=== PATIENT | male | born 2000 | race African-American/Black ===

== ENCOUNTER 2022-05-17 12:35 | Emergency (ER) | payer MEDICAID, OTHER ==
[~2022-05-17] VITALS: Ht 165.1 cm; Wt 60.8 kg
[2022-05-17 12:40] VITALS: BP 136/72
--- NOTE | 2022-05-17 12:40 | NUR ---
[facility]BS C/O PENILE DISCHARGE SINCE THIS AM, AWAITING MD ORDERS.
[2022-05-17] MEDS ORDERED: CEFTRIAXONE 1 G VIAL IM ONE (13:30)
[2022-05-17] MEDS ORDERED: PENICILLIN G BENZATHINE 2.4 MMU/4 ML ML IM ONE ×2 (13:30→13:57)
[2022-05-17] MEDS ORDERED: CEFTRIAXONE 500 MG VIAL ONE (13:57)
[2022-05-17] MEDS ORDERED: LIDOCAINE HCL/MPF 1% 30 ML VIAL IJ ONE (13:58)
[2022-05-17] MEDS ORDERED: DOXY100C2 PO (14:48)
--- NOTE | 2022-05-17 15:09 | NUR ---
Sonia rodriguez in [facility] - 05/17/22 at 1509 by MARYLOU DC
--- NOTE | 2022-05-17 15:09 | NUR ---
Patient discharged to home in stable condition. Written and verbal after care instructions given. Patient verbalizes understanding of instruction.
== END 2022-05-17 15:10 | disposition home or self-care (01) ==
LOC: ER 14:42
DX: A64 Unspecified sexually transmitted disease (principal)
CPT/HCPCS: 99284; 96372 ×2; 87491 ×2; 87591; J0558; J0696; J3490

== ENCOUNTER 2022-11-24 15:01 | Emergency (ER) | payer MEDICAID ==
[~2022-11-24] VITALS: Ht 167.6 cm; Wt 59.9 kg
[2022-11-24 15:01] VITALS: BP 118/98
[~2022-11-24 15:01] MED LIST: DOXY100C2 PO
[2022-11-24] MEDS ORDERED: DOXY100C2 PO (15:42)
[2022-11-24] MEDS ORDERED: LIDOCAINE /MPF 1% VIAL 5 ML VIAL ONE (15:54)
[2022-11-24] MEDS ORDERED: CEFTRIAXONE 1 G VIAL ONE (15:54)
[2022-11-24] MEDS ORDERED: CEFTRIAXONE 1 G VIAL IM ONE (16:00)
--- NOTE | 2022-11-24 16:01 | NUR ---
Patient discharged to home in stable condition. Written and verbal after care instructions given. Patient verbalizes understanding of instruction.
== END 2022-11-24 16:03 | disposition home or self-care (01) ==
LOC: ER 15:02
DX: A64 Unspecified sexually transmitted disease (principal); Z79.899 Other long term (current) drug therapy
CPT/HCPCS: 99283; 96372; J0696; J3490